=== PATIENT | male | born 1995 | race Caucasian/White ===

== ENCOUNTER 2018-04-14 10:35 | Emergency (ER) | payer SELFPAY ==
--- NOTE | 2018-04-14 14:06 | EDPHYS ---
Physician Documentation [facility] Name: Angel Smith Age: 23 yrs Sex: Male : 1995 Arrival Date: 04/14/2018 Time: 10:36 Bed 24 Private MD: None, None ED Physician Александр Moody HPI: 04/14 12:04 This 23 yrs old Male presents to ER via Ambulatory with complaints of Fall cp Injury, Cough, Vomiting. 12:04 Details of fall: The patient fell from an upright position, while walking. Onset: The cp symptoms/episode began/occurred last night. Associated injuries: The patient sustained injury to the low back, pain, injury to the chest, specifically the left lower rib area, tenderness. Severity of symptoms: in the emergency department the symptoms are unchanged, despite home interventions. Historical: - Allergies: 11:24 Naproxen; "makes stomach hard"; aj 11:24 Ritalin; tachycardia; aj 11:24 Sulfa (Sulfonamide Antibiotics) (rash); aj 11:24 Topamax; "makes him drunk"; aj 11:24 Zithromax (Vomiting); aj 11:24 metformin; aj - Home Meds: 11:24 Depakote Oral [Active]; Seroquel Oral [Active]; aj - PMHx: 11:24 ADD/ADHD; Asthma; Bipolar disorder; Depression; Henoch-Schonlein Purpura; Schizophrenia;aj - PSHx: 11:24 Tonsillectomy; Adenoids; aj - Immunization history:: Adult Immunizations up to date. - Social history:: Smoking status: Patient uses tobacco products, chewing tobacco. - Ebola Screening: : Patient negative for fever greater than or equal to 101.5 degrees Fahrenheit, and additional compatible Ebola Virus Disease symptoms Patient denies exposure to infectious person Patient denies travel to an Ebola-affected area in the 21 days before illness onset No symptoms or risks identified at this time. ROS: 12:10 Constitutional: Negative for body aches, chills, fever, poor PO intake. cp 12:10 Eyes: Negative for injury, pain, redness, and discharge. cp 12:10 ENT: Negative for drainage from ear(s), ear pain, sore throat, difficulty swallowing, difficulty handling secretions. 12:10 Cardiovascular: Positive for left lower rib pain, Negative for edema, palpitations. 12:10 Respiratory: Positive for cough, Negative for hemoptysis, pleurisy, shortness of breath, wheezing. 12:10 Abdomen/GI: Negative for abdominal pain, nausea, vomiting, and diarrhea, constipation, black/tarry stool, rectal bleeding. 12:10 Back: Positive for pain at rest, pain with movement, of the lumbar area. 12:10 : Negative for urinary symptoms. 12:10 MS/extremity: Negative for injury or acute deformity, decreased range of motion, paresthesias. 12:10 Skin: Negative for cellulitis, rash. 12:10 Neuro: Negative for altered mental status, dizziness, headache, numbness, weakness. 12:10 All other systems are negative. Exam: 12:15 Constitutional: The patient appears in no acute distress, alert, awake, comfortable, cp non-toxic, well developed, well nourished. 12:15 Head/Face: Normocephalic, atraumatic. Eyes: Pupils equal round and reactive to light, cp extra-ocular motions intact. Lids and lashes normal. Conjunctiva and sclera are non-icteric and not injected. Cornea within normal limits. Periorbital areas with no swelling, redness, or edema. ENT: Nares patent. No nasal discharge, no septal abnormalities noted. Tympanic membranes are normal and external auditory canals are clear. Oropharynx with no redness, swelling, or masses, exudates, or evidence of obstruction, uvula midline. Mucous membranes moist. Neck: Trachea midline, no thyromegaly or masses palpated, and no cervical lymphadenopathy. Supple, full range of motion without nuchal rigidity, or vertebral point tenderness. No Meningismus. 12:15 Chest/axilla: Inspection: normal, Palpation: crepitus, is not appreciated, tenderness, that is mild, of the left lower rib area. 12:15 Cardiovascular: Rate: normal, Rhythm: regular, Edema: is not appreciated, JVD: is not appreciated. 12:15 Respiratory: the patient does not display signs of respiratory distress, Respirations: normal, no use of accessory muscles, no retractions, no splinting, no tachypnea, labored breathing, is not present, Breath sounds: are clear throughout, no decreased breath sounds, no stridor, no wheezing. 12:15 Abdomen/GI: Inspection: abdomen appears normal, Bowel sounds: active, all quadrants, Palpation: abdomen is soft and non-tender, in all quadrants, rebound tenderness, is not appreciated, voluntary guarding, is not appreciated, involuntary guarding, is not appreciated. 12:15 Back: pain, that is mild, of the lumbar area, ROM is normal, Straight leg raises: of both lower extremities does not illicit pain. 12:15 Musculoskeletal/extremity: Exam is negative for decreased range of motion, deformity, injury. 12:15 Skin: cellulitis, is not appreciated, no rash present. 12:15 Neuro: Orientation: to person, place \\T\\ time. Mentation: lucid, able to follow commands, Cerebellar function: is grossly normal, Motor: moves all fours, strength is normal, Sensation: no obvious gross deficits. Vital Signs: 11:24 BP 127 / 76; Pulse 78; Resp 16; Temp 97.8; Pulse Ox 100% on R/A; Weight 78.47 kg; aj Height 5 ft. 7 in. (170.18 cm); 12:08 BP 129 / 83; Pulse 71; Resp 18; Pulse Ox 98% on R/A; tw2 13:17 BP 130 / 71; Pulse 59; Resp 17; Pulse Ox 98% on R/A; tw2 14:11 BP 128 / 77; Pulse 77; Resp 17; Pulse Ox 99% on R/A; tw2 11:24 Body Mass Index 27.10 (78.47 kg, 170.18 cm) aj MDM: 11:46 Patient medically screened. cp 13:00 Differential diagnosis: contusion, fracture, multiple trauma, sprain, strain. cp 14:04 Data reviewed: vital signs, nurses notes, lab test result(s), radiologic studies, plain cp films. 14:04 Test interpretation: by ED physician or midlevel provider: plain radiologic studies. cp Counseling: I had a detailed discussion with the patient and/or guardian regarding: the historical points, exam findings, and any diagnostic results supporting the discharge/admit diagnosis, lab results, radiology results, the need for outpatient follow up, a family practitioner, to return to the emergency department if symptoms worsen or persist or if there are any questions or concerns that arise at home. 04/14 12:37 Order name: Urine Dipstick--Ancillary (enter results); Complete Time: 00:57 eb 04/14 12:06 Order name: XRAY Ribs LEFT cp 04/14 12:06 Order name: XRAY Lumbar Spine (3 Views) cp 04/14 12:06 Order name: Urine Dipstick-Ancillary (obtain specimen); Complete Time: 12:08 cp 04/14 14:02 Order name: Lumbar Spine 3 Views; Complete Time: 00:57 EDMS Administered Medications: No medications were administered Disposition: 04/14/18 14:05 Discharged to Home. Impression: Other slipping, tripping and stumbling and falls, Other chest pain - Left Lower Ribs from fall, Low back pain - from fall. - Condition is Stable. - Discharge Instructions: Back Pain, Adult, Rib Contusion, Musculoskeletal Pain. - Prescriptions for Ibuprofen 800 mg Oral Tablet - take 1 tablet by ORAL route every 8 hours As needed take with food; 30 tablet. - Medication Reconciliation Form, Thank You Letter, Antibiotic Education, Prescription Opioid Use, Work release form form. - Follow up: Private Physician; When: 2 - 3 days; Reason: Recheck today's complaints. - Problem is new. - Symptoms have improved. Addendum: 04/17/2018 07:08 Co-signature as Attending Physician, Александр Moody MD I agree with the assessment and c ray plan of care. Signatures: Dispatcher [employer] EDMS Deepthi Abarca RN RN aj Anderson, Corey, MD MD cha Page, Corey, PA PA Stephanie Meyers, RN RN tw2 Corrections: (The following items were deleted from the chart) 04/14 14:12 14:05 04/14/2018 14:05 Discharged to Home. Impression: Other slipping, tripping and tw2 stumbling and falls; Other chest pain - Left Lower Ribs from fall; Low back pain - from fall. Condition is Stable. Forms are Work release form, Medication Reconciliation Form, Thank You Letter, Antibiotic Education, Prescription Opioid Use. Follow up: Private Physician; When: 2 - 3 days; Reason: Recheck today's complaints. Problem is new. Symptoms have improved. cp 19:04/13 12:15 Constitutional: The patient appears in no acute distress, alert, awake, cp non-diaphoretic, non-toxic, well developed, well nourished, cp 04/14 19:04/13 12:15 Head/Face: Normocephalic, atraumatic. cp cp 04/14 19:04/13 12:15 Eyes: Periorbital structures: appear normal, Conjunctiva: normal, no cp exudate, no injection, Sclera: no appreciated abnormality, Lids and lashes: appear normal, bilaterally, cp 04/14 19:04/13 12:15 ENT: External ear(s): are unremarkable, Ear canal(s): are normal, clear, cp TM's: bulging, is not appreciated, bilaterally, dullness, bilaterally, erythema, is not appreciated, bilaterally, Nose: is normal, Mouth: Lips: moist, Oral mucosa: pink and intact, moist, Posterior pharynx: is normal, airway is patent, no erythema, no exudate, Voice: is normal, cp 04/14 19:04/13 12:15 Neck: C-spine: vertebral tenderness, is not appreciated, crepitus, is not cp appreciated, ROM/movement: is normal, is supple, without pain, no range of motions limitations, no meningismus, no nuchal rigidity, Lymph nodes: no appreciated lymphadenopathy, cp 04/14 19:04/13 12:15 Chest/axilla: Inspection: normal, Palpation: crepitus, is not appreciated, cp tenderness, that is mild, of the left lower rib area, cp 04/14 19:04/13 12:15 Cardiovascular: Rate: normal, Rhythm: regular, Edema: is not appreciated, cpcp 04/14 19:04/13 12:15 Respiratory: the patient does not display signs of respiratory distress, cp Respirations: normal, no use of accessory muscles, no splinting, no tachypnea, labored breathing, is not present, Breath sounds: are clear throughout, no decreased breath sounds, no stridor, no wheezing, cp 04/14 19:04/13 12:15 Abdomen/GI: Inspection: abdomen appears normal, Bowel sounds: active, all cp quadrants, Palpation: abdomen is soft and non-tender, in all quadrants, rebound tenderness, is not appreciated, involuntary guarding, is not appreciated, cp 04/14 19:04/13 12:15 Back: pain, that is mild, of the lumbar area, ROM is normal, Straight leg cp raises: of both lower extremities does not illicit pain, cp 04/14 19:04/13 12:15 Skin: cellulitis, is not appreciated, no rash present. cp cp 04/14 19:04/13 12:15 Neuro: Cerebellar function: is grossly normal, Motor: moves all fours, cp strength is normal, Sensation: no obvious gross deficits, Gait: is steady, Deep tendon reflexes are 2+ (normal) in the right patellar, right Achilles, left patellar and left Achilles, cp
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
--- NOTE | 2018-04-14 14:45 | RAD REPORT ---
EXAM DESCRIPTION: Ribs Right - 04/14/2018 1:44 pm CLINICAL HISTORY: Slip and fall, rib pain COMPARISON: None. FINDINGS: No displaced rib fracture is evident. No aggressive rib lesion. No underlying pneumothorax, effusion, infiltrate or pulmonary contusion. IMPRESSION: Negative right rib series.
--- NOTE | 2018-04-14 14:46 | RAD REPORT ---
EXAM DESCRIPTION: RAD - Lumbar Spine 3 Views - 04/14/2018 1:45 pm CLINICAL HISTORY: Slip and fall, back pain COMPARISON: None. FINDINGS: A three-view lumbar spine examination was performed. Lumbar bodies are normal in height an d normal in AP alignment. AP projection shows a very slight rotatory component. A very slight left co nvex curvature is evident. No fracture or acute bony process seen. No disc space narrowing. L5 pars i nterarticularis defects are present. No subluxation of L5. No SI joint abnormality. IMPRESSION: L5 spondylolysis without spondylolisthesis. Very slight left convex curvature and very slight rotation of the lumbar spine.
[2018-04-14 14:47] LABS: Urine Blood NEGATIVE (NEG); Urine Glucose NEGATIVE (NEG); Urine Protein NEGATIVE (NEG); Urine pH 7.5 (5.0-7.0)
== END 2018-04-14 14:12 | disposition home or self-care (01) ==
LOC: ER 10:35
DX: R07.89 Other chest pain (principal); W01.0XXA Fall on same level from slipping, tripping and stumbling without subsequent striking against object, initial encounter; Y93.01 Activity, walking, marching and hiking; Y92.9 Unspecified place or not applicable; F90.9 Attention-deficit hyperactivity disorder, unspecified type; F32.9 Major depressive disorder, single episode, unspecified; Z88.2 Allergy status to sulfonamides; Z88.6 Allergy status to analgesic agent; Z88.8 Allergy status to other drugs, medicaments and biological substances; Z72.0 Tobacco use
CPT/HCPCS: 72100; 81003; 99283